=== PATIENT | male | born 1990 | race Two or more races ===

== ENCOUNTER 2016-10-26 00:26 | Emergency (ER) | payer SELFPAY | END 2016-10-26 00:53 | disposition left against medical advice (07) | LOC: ER 00:26 | DX: Z53.21 Procedure and treatment not carried out due to patient leaving prior to being seen by health care provider (principal) ==

== ENCOUNTER 2016-10-26 01:40 | Emergency (ER) | payer SELFPAY ==
[~2016-10-26] VITALS: Ht 188 cm; Wt 99.8 kg
[2016-10-26 02:26] VITALS: BP 132/82
[2016-10-26] MEDS ORDERED: DEXAMETHASONE SOD PHOSPHATE 4 MG/ML VIAL IM ONE (04:30)
== END 2016-10-26 04:11 | disposition home or self-care (01) ==
LOC: ER 01:40
DX: J02.9 Acute pharyngitis, unspecified (principal); F10.20 Alcohol dependence, uncomplicated; F17.210 Nicotine dependence, cigarettes, uncomplicated
CPT/HCPCS: 99283; A4606; Z7610